=== PATIENT | female | born 1990 | race Caucasian/White ===

== ENCOUNTER → 2016-07-13 | Outpatient (CLI) | payer OTHER ==
[~2016-07-13] MED LIST: CHOL1TAB42; CITA20TA9 PO; PRENTAB44 PO
[2016-07-13 15:11] LABS: BASO % 0.7 %; BASO ABS # 0.06 K/uL (0-0.2); COMPLETE YES; EOS % 2.7 %; HEMATOCRIT 40.6 % (37-47); IG% 0.2 %; LYMPH % 41.3 %; LYMPH ABS # 3.72 K/uL (1.2-3.4); MEAN CELL VOLUME 87.5 fL (80-100); MEAN CORPUSCULAR HEMOGLOBIN 30.4 pg (25-34); MEAN CORPUSCULAR HGB CONC 34.7 g/dl (32-36); MEAN PLATELET VOLUME 9.9 fL (7.4-10.4); MONO % 8.1 %; PLATELET COUNT 278 K/uL (130-400); RED BLOOD COUNT 4.64 M/uL (4.2-5.4); WHITE BLOOD COUNT 9.01 K/uL (4.8-10.8)
[2016-07-13 15:31] LABS: BLOOD UREA NITROGEN 11 mg/dl (7-18); BUN/CREATININE RATIO 12.3 (10-20); CALCIUM 8.7 mg/dl (8.5-10.1); CARBON DIOXIDE 30 mmol/L (21-32); CHLORIDE 105 mmol/L (98-107); CREATININE 0.89 mg/dl (0.60-1.20); GLUCOSE 107 mg/dl (70-99); POTASSIUM 3.8 mmol/L (3.5-5.1); SODIUM 139 mmol/L (136-145)
== END | disposition home or self-care (01) ==
LOC: C.LAB1850 13:19
PROVIDERS: ATTEND Internal Medicine
DX: M54.5 Low back pain (principal); D64.9 Anemia, unspecified

== ENCOUNTER 2019-05-23 18:46 | Observation (INO) ==
[2019-05-23] MEDS ORDERED: LACTATED RINGER'S 1,000 ML IV PRN (19:18)
[2019-05-23] MEDS ORDERED: LACTATED RINGER'S 500 ML IV ONE (19:21)
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
[2019-05-23 19:54] LABS: Basophils # (auto) 0.03 K/uL (0-0.2); Basophils % (auto) 0.2 %; Eosinophils % (auto) 1.3 %; Hematocrit (blood only) 31.1 % (37-47); Hemoglobin 10.6 g/dL (12.0-16.0); Immature Granulocytes # (auto) 0.16 K/uL (0.00-0.02); Immature Granulocytes % (auto) 1.1 %; Lymphocytes # (auto) 3.58 K/uL (1.2-3.4); Lymphocytes % (auto) 23.8 %; Mean Corpuscular Hemoglobin 31.4 pg (25-34); Mean Corpuscular Hgb Conc 34.1 g/dL (32-36); Monocytes % (auto) 9.3 %; Neutrophils # (auto) 9.67 K/uL (1.4-6.5); Neutrophils % (auto) 64.3 %; Platelet Count 265 K/uL (130-400); RDW Coefficient of Variation 13.1 % (11.5-14.5); Red Blood Count 3.38 M/uL (4.2-5.4); White Blood Count 15.04 K/uL (4.8-10.8)
[2019-05-23 20:03] LABS: Appearance Urine Clear (Clear); Bacteria Urine Automated Negative (Negative); Bilirubin Urine Negative (Negative); Blood Urine 2+ (Negative); Color Urine Yellow; Epithelial Cell Urine Auto 20-30 /lpf (0-5); Glucose Urine UA Negative (Negative); Ketones Urine Negative (Negative); Leukocyte Esterase Urine Negative (Negative); Nitrite Urine Negative (Negative); Protein Urine Negative (Negative); Specific Gravity Urine 1.018 (1.000-1.030); Urobilinogen Urine Negative (Negative); pH Urine 6.5 (4.5-7.5)
[2019-05-23 20:17] LABS: Amphetamines+Metham, Urine Neg (Neg); Barbiturates, Urine Neg (Neg); Benzodiazepine, Urine Neg (Neg); Cocaine, Urine Neg (Neg); MDMA (Ecstacy), Urine Neg (Neg); Methadone, Urine Neg (Neg); Opiate, Urine Neg (Neg); Phencyclidine, Urine Neg (Neg)
--- NOTE | 2019-05-23 21:23 | Ultrasound Report ---
US OB limited HISTORY: 29 years-old Female 30wks bleeding, ctx, placenta check and growth acute vaginal bleeding w ith third trimester COMPARISON: Obstetric ultrasound 03/14/2019 TECHNIQUE: Multiple real-time sonographic images of the deep pelvic structures were obtained transabd ominally assessing grayscale appearance, color flow and M-mode analysis FINDINGS: Complete anatomy scan was not conducted. The cervix appears to be closed and is partially obscured by the head. Single living intrauterine gestation is noted in cephalic positioning. heart r ate measures 124 bpm. Placenta appears unremarkable and is noted within a posterior position. Head ci rcumference measures 28.28 cm, 31 weeks 0 days. BPD measures 7.96 cm, 32 weeks and 0 days. AC measure s 26.6 cm, 30 weeks and 5 days. Femur length is 5.56 cm, 29 weeks and 2 days. Estimated weight is 3 lbs. 7 oz. +/- 8 ounces. Overall estimated gestational age is 30 weeks and 1 day with estimated date of delivery calculated at 07/31/2019. IMPRESSION: 1. Single living intrauterine gestation in cephalic positioning. 2. Unremarkable appearance of the placenta with closed cervix. 3. measurements as above. ACT 112: Negative or not required by law. The above report was generated using voice recognition software. It may contain grammatical, syntax o r spelling errors. Electronically signed by: Camden Weir M.D. 05/23/2019 9:22 PM
[2019-05-23] MEDS ORDERED: ACETAMINOPHEN 325 MG TAB PO PRN (22:09)
--- NOTE | 2019-05-23 22:09 | Obstetrical Progress Note ---
Date of Service May 23, 2019 Assessment & Plan (1) 30 weeks gestation of : (2) Vaginal bleeding in : no further bleeding and no evidence of ctx, so explained to pt given my prior exam and us findings, will not check her at this time. still i felt her bleeding was significant and prefer to watch her overnight and she is agreeable. will allow periods of time off monitor with cont reactive nst and no ctx. she needs to let us know renae with any complaints or recurrence of bleeding. i explained i cannot tell for sure where blood came from but have to presume could be abruption. really just need to wait and watch and see what if anything changes. she verbalized understanding. requests tylenol for her back pain and heating pad and position change. Subjective pt notes her back pain is bothering her, she has chronic back pain and wants to stand up. +fm. no further bleeding. denies ctx. she is thirsty but not hungry Physical Exam Constitutional: WD/WN, vitals as above Neurologic: grossly normal Psychiatric: A+Ox3, euthymic affect Genitourinary: OB Exam Monitor Tracing: + external FHT monitor used (categ 1 fetus, ), + external uterine monitor used (no ctx), + category I and + normal FHT variability sve deferred, no further bleeding per nurse Results & Data Vital Signs (Past 12 Hours) Vital Signs Temp Pulse Resp BP 05/23/19 19:26 98.6 F 20 05/23/19 19:17 88 128/77 05/23/19 18:54 88 130/79 Laboratory Results Labs reviewed, hgb stable for her, tox screen neg, u/a with blood but no bacteria. Diagnostic Findings Bedside us done efw 10%, fluid on images normal as dvp not reported upon, placenta posterior, no evid of clot or abnormality, cephalic and cx closed. see report. PG Care Time/CCT Total # of Minutes Spent Total Time Spent with Patient: Total time spent is greater than 50% in coordination of care (as documented) at patient's floor/unit and/or counseling patient: Coding Level of Care Code None Diagnoses 30 weeks gestation of Z3A.30 Vaginal bleeding in O46.90
[2019-05-23] MEDS ORDERED: QUETIAPINE FUMARATE 100 MG TABLET PO SCH (22:49)
[2019-05-23] MEDS ORDERED: VALACYCLOVIR HCL 500 MG TABLET PO SCH (23:00)
--- NOTE | 2019-05-24 07:38 | Obstetrical Progress Note ---
Date of Service May 24, 2019 Assessment & Plan (1) 30 weeks gestation of : (2) Vaginal bleeding in : (3) Herpes genitalia: Discussed with pt her course. Not sure if raw visualization of vagina contributed to her bleeding as she has active herpes outbreak but the bleeding was significant enough for me to presume abruption. No labor, normal placentation, ie no previa. If rebleeds may get label of chronic abruption and will rec steroid course based on ega. Growth borderline on us done here, rec we repeat it in about 3wks in office and that we plan weekly nsts for now. will send note to OB nurse to checkin with pt sunday and make sure followup arranged. pt is well aware that she should have nothing per vagina. I rec once she is done her bid valtrex that we trt her with daily valtrex for rest of . sent script to pharmacy. pt aware. denies questions. rh pos. Subjective Patient denies pain or bleeding. She rested well overnight. pad with only dried blood. +FM. Physical Exam Constitutional: WD/WN, vitals as above Neurologic: grossly normal Psychiatric: A+Ox3, euthymic affect Genitourinary: OB Exam Monitor Tracing: + external FHT monitor used (135 mod variability reactive for age. ), + external uterine monitor used (no ctx), + category I and + normal FHT variability exam deferred Results & Data Vital Signs (Past 12 Hours) Vital Signs Temp Pulse Resp BP 05/24/19 03:16 98.1 F 75 16 126/66 05/23/19 23:20 97.7 F 80 18 125/75 PG Care Time/CCT Total # of Minutes Spent Total Time Spent with Patient: Total time spent is greater than 50% in coordination of care (as documented) at patient's floor/unit and/or counseling patient: Coding Level of Care Code 78058 Subseq Obs Care Lvl 2 Diagnoses 30 weeks gestation of Z3A.30 Vaginal bleeding in O46.90 Herpes genitalia A60.00 Time Spent (min) 25 Comment this bill is for 05/24/19 , needs nst bill this date
[2019-05-24] MEDS ORDERED: PRENATAL VITAMIN 1 TAB PO SCH (09:00)
[2019-05-24] MEDS ORDERED: ESCITALOPRAM OXALATE 20 MG TAB PO SCH (09:00)
[2019-05-26 13:25] LABS: Chlamydia Trach RNA NOT DETECTED (NOT DETECTED); GC (Neis gonorrhoeae) RNA NOT DETECTED (NOT DETECTED)
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
== END 2019-05-24 07:45 | disposition home or self-care (01) ==
LOC: OPB 18:46 → 4S1 18:46

== ENCOUNTER 2019-07-18 13:48 | Inpatient (IN) ==
[2019-07-18] MEDS ORDERED: CEFAZOLIN 3000MG 65 ML IV SCH (14:30)
[2019-07-18] MEDS ORDERED: LACTATED RINGER'S 1,000 ML IV SCH ×3 (14:30→18:18)
[2019-07-18] MEDS ORDERED: CITRIC ACID/SODIUM CITRATE 15 ML UDC PO SCH (14:30)
--- NOTE | 2019-07-18 14:31 | History & Physical Report ---
Date of Service July 18, 2019 Assessment & Plan (1) Supervision of high risk , antepartum: - heart rate tracing category 2 with accelerations and variability -The patient adamantly does not want to have a vaginal delivery. -The patient is planning to put the baby up for adoption -The risks, benefits, and alternatives to the surgery have been discussed -While the benefits will be delivery of the infant, the risks of bleeding, infection, inadvertent injury to bowel or bladder, readmission, or rehospitalization -All questions answered of the patient -Permit has been signed and she wishes to proceed -Peds and anesthesia have been notified (2) Other specified complication, antepartum: (3) Premature rupture of membranes: History of Present Illness Chief Complaint: ROM Primary Care Provider: Mahendra Zamora MD The patient is a 29-year-old 2 para 1, with an EDC of 27 July, at 38+ weeks gestational age, who presents to labor and delivery with spontaneous rupture of membranes. Patient states the membranes ruptured at approximately 1130 hrs. on the day of admission. She states that she has been having contractions. The course is remarkable for a dilated right ventricle of the cranium noted on growth ultrasound in the early third trimester. Right ventricle measured at 22 mm with upper limit of normal being 10 mm. Patient was recommended to have a maternal- medicine consult but she no showed for the appointment and would not reschedule. The patient is giving this baby up for adoption. She has stated that throughout the . In addition the patient desires a primary section. She refuses to have a vaginal delivery. She was scheduled for a elective primary section on 20 July. The patient has a history of depression and posttraumatic stress disorder and is on Seroquel as well as Lexapro. She has had multiple urine drug screens during the which have all been negative. The patient has had intermittent vaginal bleeding during the . Evaluation for this is also been negative. Patient has a history of herpes and was treated for an outbreak approximately 3 weeks ago. She denies any outbreak currently. Laboratory values for this show blood type of O+, antibody negative, rubella immune, hepatitis B negative, she declined all genetic screening, she had a normal 1 hour Glucola at 28 weeks, and a negative third trimester beta strep culture. Allergies Allergy/AdvReac Type Severity Reaction Status Date / Time Sulfa (Sulfonamide Allergy Severe Anaphylaxis Verified 04/15/20 15:28 Antibiotics) sulfamethoxazole [Bactrim] Allergy Severe Anaphylaxis Verified 07/16/19 15:28 trimethoprim Allergy Severe Anaphylaxis Verified 07/16/19 15:28 Bactrim Allergy Unknown UNKNOWN Unverified 11/25/14 23:21 Home Medications Home Medications Medication Instructions Recorded Confirmed Type PNV cmb#95-ferrous fumarate-FA 1 tab PO DAILY 02/20/19 07/16/19 History [] escitalopram oxalate [Lexapro] 20 mg PO DAILY 02/20/19 07/16/19 History quetiapine [Seroquel] 100 mg PO DAILY 02/20/19 07/16/19 History valacyclovir 500 mg tablet 500 mg PO BID 5 Days #10 tab 05/23/19 07/16/19 Rx valacyclovir 500 mg PO DAILY 30 Days #30 tab 05/24/19 07/16/19 Rx Patient History Medical History (Updated 07/18/19 @ 14:34 by Michael Jerez Jr, MD, FACOG) 30 weeks gestation of Anxiety Bipolar 1 disorder Chronic back pain Depression Dizziness (Inactive) Dyspnea (Resolved) Encounter for anatomic survey (Inactive) Encounter for pre-operative examination False labor before 37 completed weeks of gestation Gallbladder calculus Health care maintenance Herpes NO CURRENT OUTBREAK History of migraine 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 Osteoarthritis Pelvic pain affecting Scoliosis Surgical History History of endoscopy History of esophagogastroduodenoscopy (EGD) Status post myringotomy with tube placement of both ears Social History Preferred Language: Spanish Communication Ability: Effective Stopper Setter Required: No Beliefs That Will Affect Care: None marital status: marital status details: spouse: Chester Caballero (26) incarcerated Current Living Situation: Family Current Living Situation Comment: mom and grandparents and four year old son current occupational status: employed current occupation: Home health aid Feels Safe at Home: Yes Smoking Status: Heavy tobacco smoker Tobacco Type: cigarettes ; Cigarettes Per Day: 10 ; Second Hand Exposure: Yes (grandfathers smoked) ; Hx Alcohol Use: No Hx Substance Use: No Physical Exam Constitutional: WD/WN, vitals as above Neck: trachea midline, no thyromegaly Respiratory: normal respiratory effort, lungs clear to auscultation Cardiovascular: RRR, no murmur, no edema Extremities: no calf tenderness Gastrointestinal (Abdomen): Abdomen: Gravid, vertex, positive heart tones, positive palpable contractions every 3 minutes, mild to palpation Skin: no lesions Genitourinary: Cervix: Sterile speculum examination, gross rupture of membranes, 4 cm / 90%/0 station Lymphatic: no lymphadenopathy Results & Data Vital Signs (Past 12 Hours) Vital Signs Pulse BP 07/18/19 14:08 93 H 141/87 H Coding Level of Care Code None Diagnoses Supervision of high risk , antepartum O09.90 Other specified complication, antepartum O99.89 Premature rupture of membranes O42.90
[2019-07-18 14:38] LABS: Basophils # (auto) 0.03 K/uL (0-0.2); Basophils % (auto) 0.2 %; Eosinophils # (auto) 0.03 K/uL (0-0.5); Eosinophils % (auto) 0.2 %; Hemoglobin 10.9 g/dL (12.0-16.0); Immature Granulocytes # (auto) 0.12 K/uL (0.00-0.02); Immature Granulocytes % (auto) 0.7 %; Lymphocytes # (auto) 2.74 K/uL (1.2-3.4); Mean Corpuscular Hemoglobin 29.5 pg (25-34); Mean Corpuscular Volume 89.2 fL (80-100); Mean Platelet Volume 9.9 fL (7.4-10.4); Monocytes # (auto) 1.28 K/uL (0.11-0.59); Neutrophils # (auto) 14.04 K/uL (1.4-6.5); Neutrophils % (auto) 76.9 %; Platelet Count 307 K/uL (130-400); RDW Coefficient of Variation 13.3 % (11.5-14.5); RDW Standard Deviation 43.7 fL (36.4-46.3); White Blood Count 18.24 K/uL (4.8-10.8)
[2019-07-18] MEDS ORDERED: fentaNYL citrate 100 MCG/2 ML VIAL ONE (15:26)
[2019-07-18] MEDS ORDERED: MoRPHine SULFATE PF 1 MG/ML 10 ML AMP/VIAL ONE (15:27)
[2019-07-18] MEDS ORDERED: ONDANSETRON INJ 2 MG/ML 2 ML VIAL ONE (16:14)
[2019-07-18] MEDS ORDERED: PHENYLEPHRINE 100MCG/ML 5ML SYR ONE (16:14)
[2019-07-18] MEDS ORDERED: KETOROLAC 30 MG/ML VIAL ONE (16:14)
--- NOTE | 2019-07-18 16:16 | Post Operative Brief Note ---
PG Immediate Post Op with CF Date of Surgery July 18, 2019 Pre & Post Diagnosis Operation Date: 07/18/19 15:15 Pre-Op Diagnosis: 1. Term intrauterine 2. Active labor 3. Rupture of membranes Post-Op Diagnosis: Same Operation Date: 07/21/19 07:30 <No data on this case meets the specified criteria> I identified the patient and participated in the time-out.: Yes Procedure Operation Date: 07/18/19 15:15 Actual Procedures p Elective Section in LD - Michael Jerez Jr, MD, FACOG Operation Date: 07/21/19 07:30 <No data on this case meets the specified criteria> Surgeon Michael Jerez Jr, MD, FACOG Glass Melt Operator Vicente Estimated Blood Loss 800 Findings See Below (viable male, Apgars 7/8; weight 6lbs 6 ozs, gasses pending, normal appearing tubes/ovaries bilaterally)
[2019-07-18] MEDS ORDERED: NALBUPHINE HCL INJ 10 MG/ML AMP IV PRN (16:34)
[2019-07-18] MEDS ORDERED: MoRPHine SULFATE PF 1 MG/ML 10 ML AMP/VIAL INT SPINAL ONE (16:34)
[2019-07-18] MEDS ORDERED: NALOXONE HCL 0.08 MG in SYRINGE 1.8 ML IV PRN (16:34)
[2019-07-18] MEDS ORDERED: NALOXONE HCL 0.4 MG/1 ML VIAL/CARP IV PRN (16:34)
[2019-07-18] MEDS ORDERED: ePHEDrine sulfate 50 MG/ML AMP IV PRN (16:34)
[2019-07-18] MEDS ORDERED: KETOROLAC 30 MG/ML VIAL IV PRN (16:34)
[2019-07-18] MEDS ORDERED: NALOXONE HCL 1 MG in SODIUM CHLORIDE 0.9% 1000ML 1,000 ML IV PRN (16:34)
[2019-07-18] MEDS ORDERED: MoRPHine SULFATE 2 MG/ML CARP IV PRN (16:34)
[2019-07-18] MEDS ORDERED: LACTATED RINGER'S 500 ML IV PRN (16:34)
[2019-07-18] MEDS ORDERED: HYDROmorphone INJ 1 MG/ML SYRINGE IV PRN (16:34)
[2019-07-18] MEDS ORDERED: MEPERIDINE HCL 25 MG/ML CARP/VIAL IV PRN (16:34)
--- NOTE | 2019-07-18 16:34 | Anesthesiology Consultation ---
Date of Service July 18, 2019 Assessment & Plan Chart Review Chart Review: Acceptable Risk for Surgery and Patient NOT seen in Pre Admission Testing Consults Requested none ASA ASA2 Proposed Anesthesia Anesthesia Type: Spinal Risk / Benefits Reviewed With: PT / POA / Parent / Guardian, Accepts Plan and Informed Consent Obtained History Surgery Operation Date: 07/18/19 15:15 Proposed Procedures p Section in - Michael Jerez Jr, MD, FACOG Operation Date: 07/21/19 07:30 Proposed Procedures p Section in - Pepe Godoy MD Height/Weight Height: 5 ft 1 in Weight: 85.729 kg Allergies Allergy/AdvReac Type Severity Reaction Status Date / Time Sulfa (Sulfonamide Allergy Severe Anaphylaxis Verified 07/16/19 15:28 Antibiotics) sulfamethoxazole [Bactrim] Allergy Severe Anaphylaxis Verified 07/16/19 15:28 trimethoprim Allergy Severe Anaphylaxis Verified 07/16/19 15:28 Bactrim Allergy Unknown UNKNOWN Unverified 11/25/14 23:21 Medications Home Medications Medication Instructions Recorded Confirmed Last Taken PNV cmb#95-ferrous fumarate-FA 1 tab PO DAILY 02/20/19 07/16/19 05/23/19 [] escitalopram oxalate [Lexapro] 20 mg PO DAILY 02/20/19 07/16/19 05/23/19 quetiapine [Seroquel] 100 mg PO DAILY 02/20/19 07/16/19 05/22/19 valacyclovir 500 mg tablet 500 mg PO BID 5 Days #10 tab 05/23/19 07/16/19 05/23/19 valacyclovir 500 mg PO DAILY 30 Days #30 tab 05/24/19 07/16/19 Unknown NPO Date Last Intake of Fluids: 07/18/19 Time Last Intake of Fluids: 12:00 Date Last Intake of Solids: 07/17/19 Time Last Intake of Solids: 21:00 Past Medical History Medical History 30 weeks gestation of Anxiety Bipolar 1 disorder Chronic back pain Depression Dizziness (Inactive) Dyspnea (Resolved) Encounter for anatomic survey (Inactive) Encounter for pre-operative examination False labor before 37 completed weeks of gestation Gallbladder calculus Health care maintenance Herpes NO CURRENT OUTBREAK History of migraine 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 Osteoarthritis Pelvic pain affecting Scoliosis Exercise / Class Metabolic Activity II 4-5 Yardwork/Stairs/Walk up hill Past Family History Family History Aunt Family history of reaction to anesthesia had a problem with spinal for --not sure what happened Hypertension Grandmother (Paternal) Family history of diabetes mellitus Hypertension Grandfather (Paternal) Family history of diabetes mellitus Hypertension Grandfather (Maternal) Family history of diabetes mellitus Hypertension Past Surgical History Surgical History History of endoscopy History of esophagogastroduodenoscopy (EGD) Status post myringotomy with tube placement of both ears Past Anesthesia History No Hx of Anesthesia Complications and No Family Hx of Anesthesia Complications History of PONV No Hx of PONV and No Hx of Motion Sickness Social History Smoking Status: Heavy tobacco smoker tobacco type: cigarettes Smoking cigarettes per day: 10 Do You Dip or Chew Tobacco: No Hx Alcohol Use: No Alcohol type: hard liquor alcohol intake frequency: holidays/special occasions only Hx Substance Use: No substance use type: former substance user Substance Use Type Other:: 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; opiates and cocaine Physical Exam Vital Signs Last Vital Signs Temp 37.0 C 07/18/19 14:42 Pulse 88 07/18/19 16:28 Resp 20 07/18/19 14:42 BP 87/44 L 07/18/19 16:24 Pulse Ox 99 07/18/19 16:28 ENMT Mouth: + poor dentition Thyromental Distance: > or= 3.5 Finger Breadths Mallampati Class: II Neck normal visual inspection Respiratory normal respiratory effort Auscultation: lungs clear to auscultation bilaterally Cardiovascular Rate/Rhythm: regular rate and regular rhythm Psychiatric Orientation: alert Testing Laboratory Results 07/18/19 14:27 Blood Type O Positive 07/18/19 14:27 Antibody Screen NEGATIVE 07/18/19 14:27
[2019-07-18 16:35] LABS: Base Excess Cord Arterial Bld -0.9 mEq/L (-9-1.8); CO2 Cord Arterial Blood 50 mmHg (39.1-73.5); HCO3 Cord Arterial Blood 26 mmol/L (19.7-28.5); PO2 Cord Arterial Blood 14 mmHg (4.1-31.7); pH Cord Arterial Blood 7.33 (7.1-7.38)
[2019-07-18 16:36] LABS: Oxygen Sat Cord Arterial Blood < 60.0 % (<60)
[2019-07-18 16:40] LABS: Base Excess Cord Venous Blood -1.4 mEq/L (-7.7-1.9); Cord Venous Blood HCO3 26 mmol/L (18.4-26.8); Cord Venous Blood PCO2 50 mmHg (30.4-57.2); Cord Venous Blood PO2 14 mmHg (14.1-43.3); Cord Venous Blood pH 7.32 (7.20-7.44); O2 Saturation Cord Venous Bld < 60.0 % (<68)
--- NOTE | 2019-07-18 16:40 | Operative Report (OR) ---
DATE OF OPERATION: 07/18/2019 PREOPERATIVE DIAGNOSES: 1. Term . 2. Active labor. 3. Spontaneous rupture of membranes. POSTOPERATIVE DIAGNOSES: Same. PROCEDURE PERFORMED: Primary elective section. SURGEON: Michael Jerez MD ANIMAL KEEPER: Hadely Zhang MD. ANESTHESIA: Spinal. FINDINGS: Viable male with Apgars of 7 and 8 and weight of 6 pounds 6 ounces. Arterial and venous cord gases are pending. Normal appearing tubes and ovaries bilaterally, dark brown clot with the placenta, possibly consistent with chronic abruption. PROCEDURE IN DETAIL: The patient was taken to the operating room and after spinal anesthesia, was placed in supine position, draped and prepped in the usual fashion. Pfannenstiel type incision was made. Underlying subcutaneous tissue was dissected down to the ventral abdominal fascia, which was nicked and opened in a horizontal manner. Preperitoneal fascia was dissected away until the peritoneal cavity was entered and opened in a vertical manner. Bladder blade was placed. Uterus was entered sharply and extended in a semilunar fashion manually. Viable male infant was delivered. Cord was clamped and cut and the baby was passed off to pediatrics who was in attendance for the delivery. Cord gases and cord blood samples obtained. Placenta delivered spontaneously and sent for pathological evaluation. The uterus was exteriorized. The uterine cavity was wiped clean of any residual blood tissue and/or clot. The uterine incision was then closed with 2 layers of 4-0 Vicryl, the first a running locking stitch, the second an imbricating stitch. Hemostasis achieved and the uterus returned to the pelvic cavity. Pericolic gutters were cleared bilaterally of any blood tissue and/or clot. Sponge and needle count was correct. Uterine incision was inspected for hemostasis again which was present. The rectus muscle was then plicated in the midline with a running 2-0 Vicryl stitch. The fascia was closed laterally with a running 0 Vicryl suture. Subcutaneous tissue was irrigated with warm saline and the skin incision was closed with a 4-0 Monocryl subcuticular suture. Sterile dressing was applied and the patient was taken to the recovery room in satisfactory condition. I attest to the content of the Intraoperative Record and any orders documented therein. Any exception s are noted below.
[2019-07-18] MEDS ORDERED: SODIUM CHLORIDE 0.9% 1000ML 1,000 ML IV SCH (16:45)
[2019-07-18] MEDS ORDERED: NO NARCOTICS OR SEDATIVES SCH (16:45)
[2019-07-18] MEDS ORDERED: DC INTRASPINAL MORPHINE SCH (16:45)
[2019-07-18 16:53] LABS: Amphetamines+Metham, Urine Neg (Neg); Barbiturates, Urine Neg (Neg); Benzodiazepine, Urine Neg (Neg); Cocaine, Urine Neg (Neg); MDMA (Ecstacy), Urine Neg (Neg); Methadone, Urine Neg (Neg); Opiate, Urine Neg (Neg); Phencyclidine, Urine Neg (Neg)
--- NOTE | 2019-07-18 16:59 | Anesthesiology Progress Note ---
Date of Service July 18, 2019 Anesthesia Post Procedure Vital Signs Vital Signs: Temp Pulse Resp BP Pulse Ox 07/18/19 16:54 77 100 07/18/19 16:50 72 115/66 07/18/19 16:49 72 100 07/18/19 16:44 76 99 07/18/19 16:42 78 106/57 L 07/18/19 16:39 74 99 07/18/19 16:37 80 79 L 07/18/19 16:34 83 97/60 L 07/18/19 16:33 83 94/61 L 98 07/18/19 16:30 36.5 C 76 16 94/61 L 98 07/18/19 16:28 88 99 07/18/19 16:24 79 87/44 L 07/18/19 16:23 83 98 07/18/19 15:23 90 100 07/18/19 15:18 83 99 07/18/19 15:13 89 100 07/18/19 15:08 85 100 07/18/19 15:03 88 100 07/18/19 14:58 89 100 07/18/19 14:53 108 H 100 07/18/19 14:42 37.0 C 93 H 20 141/87 H 07/18/19 14:08 93 H 141/87 H Transfer of Care Handoff Completed per policy Notes Mental Status: alert / awake / arousable Nausea / Vomiting: adequately controlled Pain: adequately controlled Airway Patency, RR, SpO2: stable & adequate BP & HR: stable & adequate Hydration State: stable & adequate Neuraxial Anesthesia: was administered and sensory block is resolving Anesthetic Complications: no major complications apparent
[2019-07-18] MEDS ORDERED: ONDANSETRON INJ 2 MG/ML 2 ML VIAL IV PRN (18:18)
[2019-07-18] MEDS ORDERED: DIPHTHERIA/TETANUS/PERTUSSIS 0.5 ML SYR/VIAL IM ONE (18:18)
[2019-07-18] MEDS ORDERED: SUPERCREAM 0.870% 15 GM JAR EXT PRN (18:18)
[2019-07-18] MEDS ORDERED: BENZOCAINE 20% AER SPR 82.5 GM CAN EXT PRN (18:18)
[2019-07-18] MEDS ORDERED: HYDROCORTISONE ACETATE 25 MG SUPP PR PRN (18:18)
[2019-07-18] MEDS: OXYTOCIN 20 UNITS in LACTATED RINGER'S 1,000 ML IV SCH (19:43)
[2019-07-18] MEDS: SIMETHICONE 80 MG CHEW PO SCH (19:43)
[2019-07-18] MEDS ORDERED: QUETIAPINE FUMARATE 100 MG TABLET PO SCH (21:00)
[2019-07-18] MEDS: NICOTINE 21 MG/24 HR TDSY TD SCH (21:29)
[2019-07-18] MEDS: DiphenhydrAMINE HCL 50 MG/ML VIAL IV PRN (21:33)
[2019-07-19] MEDS: SIMETHICONE 80 MG CHEW PO SCH ×5 (03:20→20:47)
[2019-07-19] MEDS: OXYTOCIN 20 UNITS in LACTATED RINGER'S 1,000 ML IV SCH (03:21)
[2019-07-19 06:35] LABS: Basophils # (auto) 0.02 K/uL (0-0.2); Basophils % (auto) 0.1 %; Eosinophils # (auto) 0.09 K/uL (0-0.5); Eosinophils % (auto) 0.5 %; Hematocrit (blood only) 28.1 % (37-47); Hemoglobin 9.2 g/dL (12.0-16.0); Immature Granulocytes # (auto) 0.11 K/uL (0.00-0.02); Immature Granulocytes % (auto) 0.6 %; Lymphocytes # (auto) 2.77 K/uL (1.2-3.4); Lymphocytes % (auto) 16.1 %; Mean Corpuscular Hemoglobin 29.7 pg (25-34); Mean Corpuscular Hgb Conc 32.7 g/dL (32-36); Mean Corpuscular Volume 90.6 fL (80-100); Mean Platelet Volume 9.7 fL (7.4-10.4); Monocytes # (auto) 0.91 K/uL (0.11-0.59); Monocytes % (auto) 5.3 %; Neutrophils # (auto) 13.35 K/uL (1.4-6.5); Neutrophils % (auto) 77.4 %; Platelet Count 254 K/uL (130-400); RDW Coefficient of Variation 13.5 % (11.5-14.5); RDW Standard Deviation 44.2 fL (36.4-46.3); White Blood Count 17.25 K/uL (4.8-10.8)
--- NOTE | 2019-07-19 08:11 | Obstetrical Progress Note ---
Date of Service July 19, 2019 Assessment & Plan (1) Premature rupture of membranes: - discussed surgery and findings - begin ambulation later today - routine care Subjective Ambulation: limited ambulation Physical Exam Constitutional WD/WN, vitals as above Respiratory normal respiratory effort, lungs clear to auscultation Cardiovascular RRR, no murmur, no edema Gastrointestinal (Abdomen) Dressing dry, appropriate post-op tenderness Musculoskeletal (-) deep calf tenderness Results & Data Vital Signs (Past 12 Hours) Vital Signs Temp Pulse Resp BP Pulse Ox 07/19/19 06:00 14 95 07/19/19 05:25 14 94 07/19/19 04:35 14 92 07/19/19 03:50 14 95 07/19/19 03:10 14 91 07/19/19 02:30 16 92 07/19/19 01:25 14 96 07/19/19 00:35 14 96 07/18/19 23:10 99.0 F 100 H 16 124/71 95 07/18/19 22:35 16 96 07/18/19 22:00 16 99 07/18/19 21:30 16 98
[2019-07-19] MEDS: PRENATAL VITAMIN 1 TAB PO SCH (08:23)
[2019-07-19] MEDS: DiphenhydrAMINE HCL 50 MG/ML VIAL IV PRN (08:23)
[2019-07-19] MEDS: FERROUS SULFATE 325 MG TAB PO SCH (08:23)
[2019-07-19] MEDS: ESCITALOPRAM OXALATE 20 MG TAB PO SCH (08:25)
[2019-07-19] MEDS ORDERED: QUETIAPINE FUMARATE 100 MG TABLET PO SCH (09:00)
[2019-07-19] MEDS ORDERED: DiphenhydrAMINE HCL 50 MG/ML VIAL IV PRN (10:36)
[2019-07-19] MEDS ORDERED: KETOROLAC 30 MG/ML VIAL IV PRN (10:36)
[2019-07-19] MEDS: OXYCODONE/ACETAMINOPHEN 5mg/325mg TAB PO PRN ×3 (12:38→20:45)
[2019-07-19] MEDS: IBUPROFEN 600 MG TAB PO PRN ×2 (16:36→20:46)
[2019-07-19] MEDS: NICOTINE 21 MG/24 HR TDSY TD SCH (20:45)
[2019-07-19] MEDS ORDERED: SENNA 8.6 MG TAB PO SCH (21:00)
[2019-07-19] MEDS ORDERED: MAGNESIUM HYDROXIDE SUSP 30 ML UDC PO SCH (21:00)
[2019-07-20] MEDS: OXYCODONE/ACETAMINOPHEN 5mg/325mg TAB PO PRN ×2 (00:23→08:39)
[2019-07-20] MEDS: IBUPROFEN 600 MG TAB PO PRN ×2 (00:24→08:40)
[2019-07-20 06:30] LABS: Hemoglobin 8.2 g/dL (12.0-16.0)
[2019-07-20] MEDS: SIMETHICONE 80 MG CHEW PO SCH (08:39)
[2019-07-20] MEDS: ESCITALOPRAM OXALATE 20 MG TAB PO SCH (08:39)
[2019-07-20] MEDS: FERROUS SULFATE 325 MG TAB PO SCH (08:40)
--- NOTE | 2019-07-20 08:46 | Obstetrical Progress Note ---
Date of Service July 20, 2019 Assessment & Plan (1) state: Postoperative from section patient meets discharge criteria as she is ambulating well tolerating an oral diet has minimal bleeding and no extremity pain. Discharge instructions were reviewed and prescriptions were sent to her pharmacy of choice patient advised to call with any concerns and follow-up in the office discussed Subjective Ambulation: ambulating normally Diet Tolerance:: regular diet Lochia:: Small Current Pain Level(1-10): 1 Physical Exam Constitutional WD/WN, vitals as above Gastrointestinal (Abdomen) normal bowel sounds, soft, nontender, no hepatosplenomegaly (Incision CDI, Ext neg) Results & Data Vital Signs (Past 12 Hours) Vital Signs Temp Pulse Resp BP Pulse Ox 07/20/19 07:20 97.9 F 81 16 133/79 98 07/19/19 23:50 98.1 F 88 16 125/82 97
[2019-07-20] MEDS: PRENATAL VITAMIN 1 TAB PO SCH (10:30)
--- NOTE | 2019-07-21 08:52 | Discharge Summary ---
Date of Service July 21, 2019 Admission HPI Per Admitting Provider The patient is a 29-year-old 2 para 1, with an EDC of 27 July, at 38+ weeks gestational age, who presents to labor and delivery with spontaneous rupture of membranes. Patient states the membranes ruptured at approximately 1130 hrs. on the day of admission. She states that she has been having contractions. The course is remarkable for a dilated right ventricle of the cranium noted on growth ultrasound in the early third trimester. Right ventricle measured at 22 mm with upper limit of normal being 10 mm. Patient was recommended to have a maternal- medicine consult but she no showed for the appointment and would not reschedule. The patient is giving this baby up for adoption. She has stated that throughout the . In addition the patient desires a primary section. She refuses to have a vaginal delivery. She was scheduled for a elective primary section on 20 July. The patient has a history of depression and posttraumatic stress disorder and is on Seroquel as well as Lexapro. She has had multiple urine drug screens during the which have all been negative. The patient has had intermittent vaginal bleeding during the . Evaluat ion for this is also been negative. Patient has a history of herpes and was treated for an outbreak approximately 3 weeks ago. She denies any outbreak currently. Laboratory values for this show blood type of O+, antibody negative, rubella immune, hepatitis B negative, she declined all genetic screening, she had a normal 1 hour Glucola at 28 weeks, and a negative third trimester beta s trep culture. Discharge Data Consultations 07/18/19 14:17 Consult Anesthesiology Stat 07/18/19 18:18 Consult Case Management - Discharge Planning Routine Procedures Performed Operation Date: 07/18/19 15:15 Actual Procedures p Section with of live male child at 1552(Bilateral) - Michael Jerez Jr, MD, FACOG Operation Date: 07/21/19 07:30 <No data on this case meets the specified criteria> Hospital Course (1) Supervision of high risk , antepartum: Upon admission the patient was deemed to be in active labor with rupture of membranes. The patient adamantly desired no attempt at a vaginal delivery even though she had a previous successful vaginal delivery. The patient was taken to the operating room in and underwent a primary elective section delivering a viable infant. As per the patient planned the baby was given up for adoption. The adoptive Services and nephrology social worker were involved and proceeded with the adoption. Postoperatively the patient did well Fontana catheter was removed on the 1st postoperative day. On the 2nd postoperative day the patient was ambulating without difficulty and tolerating a regular diet. She was discharged home with the routine discharge instructions and prescriptions for the medications as listed as above. She will follow up in the office in 6 weeks time for postoperative check, but is always she was instructed to call with any questions problems difficulties. Coding Level of Care Code None Diagnoses Supervision of high risk , antepartum O09.90
== END 2019-07-20 11:45 | disposition home or self-care (01) | DRG 787 ==
LOC: 4S1 13:48 → 4S2 19:20 → EDSTATUS 07-21 07:30

== ENCOUNTER 2023-09-07 16:01 | Inpatient (IN) ==
[2023-09-07 16:46] LABS: Basophils # (auto) 0.05 K/uL (0.00-0.20); Basophils % (auto) 0.7 %; Eosinophils # (auto) 0.06 K/uL (0.00-0.50); Eosinophils % (auto) 0.8 %; Hematocrit (blood only) 36.5 % (37.0-47.0); Immature Granulocytes # (auto) 0.02 K/uL (0.01-0.20); Immature Granulocytes % (auto) 0.3 %; Lymphocytes # (auto) 2.35 K/uL (1.20-3.40); Lymphocytes % (auto) 32.4 %; Mean Corpuscular Hemoglobin 27.8 pg (25.0-34.0); Mean Corpuscular Hgb Conc 32.9 g/dL (32.0-36.0); Mean Corpuscular Volume 84.5 fL (80.0-100.0); Mean Platelet Volume 9.9 fL (9.4-12.4); Monocytes # (auto) 0.61 K/uL (0.11-0.59); Monocytes % (auto) 8.4 %; Neutrophils # (auto) 4.16 K/uL (1.40-6.50); Neutrophils % (auto) 57.4 %; Platelet Count 305 K/uL (130-400); RDW Coefficient of Variation 13.7 % (11.5-14.5); RDW Standard Deviation 42.5 fL (36.4-46.3); Red Blood Count 4.32 M/uL (4.20-5.40); White Blood Count 7.25 K/ul (4.8-10.8)
[2023-09-07 16:53] LABS: Appearance Urine Clear (Clear); Bacteria Urine Automated 1+ (None Seen); Bilirubin Urine Negative (Negative); Blood Urine Negative (Negative); Cast Urine Automated 0-2 /lpf (0-2); Color Urine Yellow; Glucose Urine UA Negative (Negative); Ketones Urine Negative (Negative); Leukocyte Esterase Urine 2+ (Negative); Nitrite Urine Negative (Negative); Protein Urine Negative (Negative); Specific Gravity Urine 1.013 (1.000-1.030); Urobilinogen Urine Negative (Negative)
[2023-09-07 17:03] LABS: Albumin Globulin Ratio 1.4 (0.9-2); Albumin Level 4.2 gm/dl (3.4-5.0); BUN Creatinine Ratio 9.6 (10-20); Bilirubin,Total 0.3 mg/dl (0.2-1.0); Calcium 8.6 mg/dl (8.6-10.3); Creatinine Clr Calc Pharmacy 106.4 ml/min; Est GFR (African American) 126.3 ml/min; Globulin 3.1 gm/dl (2.5-4.0); Potassium 3.3 mmol/L (3.5-5.1); Total Protein 7.3 gm/dl (6.0-8.3)
[2023-09-07 17:17] LABS: Thyroid Stimulating Hormone 0.711 uIu/ml (0.300-4.500)
[2023-09-07 17:53] LABS: Acetaminophen < 3 ug/ml (10-30); Salicylate < 3.0 mg/dl (3.0-30)
[2023-09-07 17:53] LABS: Amphetamines+Metham, Urine Neg (Neg); Barbiturates, Urine Neg (Neg); Benzodiazepine, Urine Neg (Neg); Cocaine, Urine Neg (Neg); Fentanyl, Urine Neg (Neg); MDMA (Ecstacy), Urine Neg (Neg); Marijuana, Urine Pos (Neg); Methadone, Urine Neg (Neg); Opiate, Urine Neg (Neg); Phencyclidine, Urine Neg (Neg)
--- NOTE | 2023-09-07 20:19 | Emergency Department Note ---
Impression & Plan Passive suicidal ideations ED Provider Note CHIEF COMPLAINT: Anxiety HISTORY OF PRESENT ILLNESS: This 33-year-old female patient with past medical history of bipolar disorder, herpes, migraines, depression presents to the emergency department with complaints of anxiety. The patient states she was placed on Abilify by her psychiatrist in addition to her sertraline. She stopped the medication as she did not feel that she was tolerating it well. She is having some passive suicidal ideation but does not have a plan. She denies any homicidal ideation. She states she does use medical marijuana, but does not drink alcohol or use any other illicit substances. Patient states she maybe . REVIEW OF SYSTEMS: A review of systems was performed with positives and pertinent negatives listed in the history of present illness. 10 systems were reviewed and are otherwise negative. ALLERGIES: see below MEDICATIONS: see below PMH: see below SOCIAL HISTORY: see below DDx: Mood disorder, infection, hypoglycemia, electrolyte abnormalities, toxicologic, trauma, as well as other pathologies. PHYSICAL EXAM: Vital signs reviewed. General: Well-appearing 33 yo female, in no significant distress. HEENT: No scleral icterus, PERRLA, neck supple. MMM Cardiovascular: Regular rate and rhythm, no extra sounds. Pulmonary: Clear to auscultation bilaterally, normal work of breathing. Abdomen: Soft, nontender, nondistended, positive bowel sounds. Musculoskeletal: Atraumatic, no peripheral edema. Neurologic: Patient awake alert and oriented x 3, speech is clear Psych: Passive SI, negative HI Skin: Warm, dry, no rash EMERGENCY DEPARTMENT COURSE/MDM: This patient was evaluated and appeared to be in no significant distress. Patient was medically cleared and referred to the mental health telehealth case manager for assessment. Patient is voluntary for admission and was referred to 3 S. She was accepted on a 201. DISPOSITION: Admission Past Med/Surg History Problem List (Updated 09/07/23 @ 23:19 by Nini Martin MD) Passive suicidal ideations (Acute) Spontaneous Encounter to determine viability of Encounter for anatomic survey Encounter for supervision of normal in multigravida, antepartum Anemia (Acute) Bipolar 1 disorder Scoliosis Encounter for visit Herpes genitalia Depression (Acute) Symptomatic cholelithiasis Migraine Medical History Cervical cancer screening state Premature rupture of membranes Supervision of high risk , antepartum False labor before 37 completed weeks of gestation Vaginal bleeding in 30 weeks gestation of Health care maintenance Pelvic pain affecting Normal in multigravida, antepartum Encounter for anatomic survey Herpes NO CURRENT OUTBREAK Gallbladder calculus History of migraine Anxiety Encounter for pre-operative examination Osteoarthritis Chronic back pain Depression Irregular heart beat 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 Dizziness Ovarian cyst Dyspnea Other specified complication, antepartum Surgical History Hx of section History of endoscopy History of esophagogastroduodenoscopy (EGD) Status post myringotomy with tube placement of both ears Family History Aunt Family history of reaction to anesthesia had a problem with spinal for --not sure what happened Hypertension Grandmother (Paternal) Family history of diabetes mellitus Hypertension Grandfather (Paternal) Family history of diabetes mellitus Hypertension Stroke Grandfather (Maternal) Family history of diabetes mellitus Hypertension Other Breast cancer Diabetes Dyslipidemia Heart disease Kidney disease Ovarian cancer Thyroid disease Denies family history of Lung cancer Colorectal cancer Social History Smoking Status: Current every day smoker Tobacco Type: E-cigarettes / Vaping packs per day: 0.5; Second Hand Exposure: No; Do You Dip or Chew Tobacco: No; Hx Alcohol Use: No Hx Substance Use: Yes Prescribed Medications: Marijuana Substance Use Type Other:: 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; opiates and cocaine Preferred Language: Palestinian Communication Ability: Effective Visual Impairment: Limited Hearing Ability: Normal Carton Inspector Required: No Beliefs That Will Affect Care: None marital status: marital status details: spouse: Chester Caballero (30) [phone] Current Living Situation: Spouse, Parent and Family Current Living Situation Comment: lives with spouse, son, grandparents current occupational status: employed current occupation: Home health aid How many Children do You have: 2 Feels Safe at Home: Yes Childhood Exposure to Second-Hand Smoke: Yes Diet: regular caffeine: Yes Dental Care, Regularly: No Physical Activity Frequency: Daily Seatbelt Use: always Sunscreen Use: No Gender Identity: Female Assistive Devices: Denture - Upper, Denture - Lower and Glasses Allergies Allergies Allergy/AdvReac Type Severity Reaction Status Date / Time Sulfa (Sulfonamide Allergy Severe Anaphylaxis Verified 08/21/23 12:23 Antibiotics) sulfamethoxazole [Bactrim] Allergy Severe Anaphylaxis Verified 08/21/23 12:23 trimethoprim Allergy Severe Anaphylaxis Verified 08/21/23 12:23 Home Meds Home Medications Medication Instructions Recorded Confirmed sertraline 50 mg tablet (Zoloft) 50 mg PO HS 05/30/23 09/07/23 Previous Rx's Medication Instructions Recorded methocarbamol 750 mg tablet 750 mg PO Q6H PRN back spasm #120 07/02/23 tabs valacyclovir 500 mg tablet 500 mg PO BID PRN outbreak #2 tabs 07/02/23 Results & Data (ED) Vital Signs Vital Signs - 24 hr 09/07/23 16:06 09/07/23 20:57 Temperature 36.6 C Temperature Source Temporal Artery Scan Pulse Rate 95 H 76 Respiratory Rate 16 18 Respiratory Effort / Characteristics Non-Labored Respiratory Depth Normal Blood Pressure 124/81 125/69 Blood Pressure Mean 95 Pulse Oximetry 100 99 Oxygen Delivery Method Room Air Room Air Sepsis Recent Fever Within 48 Hours No Sepsis New/Unexplained Change in Mental Status No Sepsis Action Taken by Nursing No Action Required Home Medications Current Medication List: was personally reviewed by me Laboratory Data Attestation: I reviewed the patient's lab results. 09/07/23 16:26 09/07/23 16:26 Lab Results 09/07/23 09/07/23 09/07/23 Range/Units 16:20 16:26 16:33 WBC 7.25 (4.8-10.8) K/ul RBC 4.32 (4.20-5.40) M/uL Hgb 12.0 (12.0-16.0) g/dl Hct 36.5 L (37.0-47.0) % MCV 84.5 (80.0-100.0) fL MCH 27.8 (25.0-34.0) pg MCHC 32.9 (32.0-36.0) g/dL RDW Std Deviation 42.5 (36.4-46.3) fL RDW Coeff of Emerald 13.7 (11.5-14.5) % Plt Count 305 (130-400) K/uL MPV 9.9 (9.4-12.4) fL Immature Gran % (Auto) 0.3 % Neut % (Auto) 57.4 % Lymph % (Auto) 32.4 % Josephine % (Auto) 8.4 % Eos % (Auto) 0.8 % Baso % (Auto) 0.7 % Neut # (Auto) 4.16 (1.40-6.50) K/uL Lymph # (Auto) 2.35 (1.20-3.40) K/uL Josephine # (Auto) 0.61 H (0.11-0.59) K/uL Eos # (Auto) 0.06 (0.00-0.50) K/uL Baso # (Auto) 0.05 (0.00-0.20) K/uL Immature Gran # (Auto) 0.02 (0.01-0.20) K/uL Sodium 137 (136-145) mmol/L Potassium 3.3 L (3.5-5.1) mmol/L Chloride 105 (98-107) mmol/L Carbon Dioxide 25 (21-32) mmol/L Anion Gap 7 (3-11) BUN 7 (6-23) mg/dl Creatinine 0.73 (0.6-1.2) mg/dl Est Cr Clr Drug Dosing 106.4 ml/min Est GFR ( Amer) 126.3 ml/min Est GFR (Non-Af Amer) 109.0 ml/min BUN/Creatinine Ratio 9.6 L (10-20) Glucose 67 L (70-99(Fasting)) mg/dl Calcium 8.6 (8.6-10.3) mg/dl Total Bilirubin 0.3 (0.2-1.0) mg/dl AST 11 L (13-39) U/L ALT 11 (7-52) U/L Alkaline Phosphatase 61 (34-104) U/L Total Protein 7.3 (6.0-8.3) gm/dl Albumin 4.2 (3.4-5.0) gm/dl Globulin 3.1 (2.5-4.0) gm/dl Albumin/Globulin Ratio 1.4 (0.9-2) TSH 0.711 (0.300-4.500) uIu/ml Urine Color Yellow Urine Appearance Clear (Clear) Urine pH 7.0 (4.5-7.5) Ur Specific [place] 1.013 (1.000-1.030) Urine Protein Negative (Negative) Urine Glucose (UA) Negative (Negative) Urine Ketones Negative (Negative) Urine Blood Negative (Negative) Urine Nitrite Negative (Negative) Urine Bilirubin Negative (Negative) Urine Urobilinogen Negative (Negative) Ur Leukocyte Esterase 2+ H (Negative) Urine WBC (Auto) 6-10 H (0-5) /hpf Urine RBC (Auto) 3-5 H (0-2) /hpf U Hyaline Cast (Auto) 0-2 (0-2) /lpf U Epithel Cells (Auto) 6-10 H (0-2) /hpf Urine Bacteria (Auto) 1+ H (None Seen) Urine Yeast Present A (None Prsent) POC Ur Test NEG (NEG) Salicylates < 3.0 L (3.0-30) mg/dl Urine Opiates Screen Neg (Neg) Ur Methadone, Qual Neg (Neg) Urine Fentanyl Screen Neg (Neg) Acetaminophen < 3 L (10-30) ug/ml Urine Barbiturates Neg (Neg) Ur Phencyclidine (PCP) Neg (Neg) U Amphetamin/Meth Scrn Neg (Neg) MDMA (Ecstasy) Screen Neg (Neg) U Benzodiazepines Scrn Neg (Neg) Ur Cocaine Metabolite Neg (Neg) U Marijuana (THC) Screen Pos H (Neg) Ethyl Alcohol mg/dL < 10.0 (<10.0) mg/dl SARS-CoV-2, RNA, NAAT NEGATIVE (NEGATIVE) Administered Medications Hydroxyzine HCl (Hydroxyzine Hcl 25 Mg Tab) 50 mg PO HSZ PRN PRN Reason: Insomnia Stop: 10/07/23 21:26 Last Admin: 09/07/23 22:06 Dose: 50 mg Documented By: RB Sertraline HCl (Sertraline Hcl 50 Mg Tablet) 50 mg PO HS GLADIS Stop: 10/07/23 21:59 Last Admin: 09/07/23 22:05 Dose: 50 mg Documented By: RB Valacyclovir HCl (Valacyclovir Hcl 500 Mg Tablet) 500 mg PO BID GLADIS Stop: 10/07/23 21:44 Last Admin: 09/07/23 22:05 Dose: 500 mg Documented By: RB Discharge Plan Visit Data Chief Complaint: Mental Health Evaluation Stated Complaint: MENTAL HEALTH EVAL ED Provider: Veronica,Nini B Discharge Problem: Passive suicidal ideations Patient Disposition: Admitted As Inpatient Discharge Instructions Interventions: ED Discharge Assessment Last Done: 09/07/23 20:57
[2023-09-07] MEDS ORDERED: BISMUTH SUBSALICYLATE LIQD 236 ML PO PRN (21:27)
[2023-09-07] MEDS ORDERED: ALUMINUM/MAGNESIUM SUSP 30 ML UDC PO PRN (21:27)
[2023-09-07] MEDS ORDERED: hydrOXYzine HCl 25 MG TAB PO PRN (21:27)
[2023-09-07] MEDS ORDERED: SODIUM CHLORIDE 0.65% NA SOLN 45 ML (OCEAN) PRN (21:27)
[2023-09-07] MEDS ORDERED: MAGNESIUM HYDROXIDE SUSP 30 ML UDC PO PRN (21:27)
[2023-09-07] MEDS: SERTRALINE HCL 50 MG TABLET PO SCH (22:05)
[2023-09-07] MEDS: valACYclovir HCL 500 MG TABLET PO SCH (22:05)
[2023-09-07] MEDS: hydrOXYzine HCl 25 MG TAB PO PRN (22:06)
[2023-09-08] MEDS: NICOTINE 21 MG/24 HR TDSY TD SCH (07:12)
[2023-09-08] MEDS: NICOTINE POLACRILEX 2 MG GUM MT PRN (07:12)
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
[2023-09-08] MEDS ORDERED: valACYclovir HCL 500 MG TABLET PO PRN (11:49)
[2023-09-08] MEDS: METHOCARBAMOL 750 MG TABLET PO PRN (14:25)
[2023-09-08] MEDS: ACETAMINOPHEN 325 MG TAB PO PRN (14:26)
[2023-09-08] MEDS: valACYclovir HCL 500 MG TABLET PO SCH (20:47)
[2023-09-08] MEDS: LITHIUM CARBONATE 300 MG TAB PO SCH (20:48)
[2023-09-08] MEDS: SERTRALINE HCL 50 MG TABLET PO SCH (20:49)
--- NOTE | 2023-09-09 08:44 | Psychiatric Progress Note ---
Date of Service September 09, 2023 Impression / Recommendations Impression ANGELICA DURAN is a 33-year-old F who currently lives in [place] with her son, intermittently and grandparents, has a history of BPAD, PTSD, anxiety, polysubstance use in sustained remission and was admitted on 09/07/23 21:16 on a 201 voluntary commitment for SI and mood symptoms including increased impulsivity, agitation, irritability, and sleep difficulties. Diagnostically seems most consistent with mixed episode of bipolar affective disorder though her report of mood symptoms varying over the course of the day, hx of self-harm and recent tattoos to this end and anger from relationship strain could represent borderline personality disorder. Given report of past manic episodes that sound quite convincing for BPAD and historical diagnosis reviewed mood stabilizer medication options. A: Mood improving, more hopeful today. Reviewed mood disorder questionnaire and gene BPD. Positive mood disorder screen. Gene BPD negative. She wants to continue with Woodfin, prefers to remain at current dose for awhile instead of ongoing titration. Overall, I spent a total of 25 minutes on this case including meeting with the patient, reviewing the chart, nursing report, multidisciplinary team meeting, orders, and documentation. (1) Bipolar 1 disorder, mixed, severe: Plan 09/09/2023: Switch sertraline to 50mg qd. Continue with Woodfin 300mg HS. 09/08/2023: The patient was admitted to the [facility] ([facility]) on q15 min checks (behavioral with suicide precautions) for safety. The patient will participate in group, recreational, and milieu therapies and will be offered additional individual and family sessions as clinically appropriate. -Start Woodfin 300mg HS -Continue sertraline 50mg HS -Likely would benefit from a sleep study if sleep behaviors persist -Mood Disorder Questionnaire and Gene BPD Screen Inventory Assets Strengths: supportive relationships, willing to get treatment Needs: safety and stabilization, medication adjustment, additional coping skills, increased outpatient services Suicide Risk Level Suicide Risk Level: Moderate (q15 min suicide checks) (mixed mood episode with SI and hx of impulsive suicide attempt but mood improving, feels safe in the hospital and feels able to ask for more support if needed) Suicide Risk Level Comments: Risk Factors Assessment Male: No : No Do You Have Access To A Gun?: No Health Problems: Yes (chronic back pain) Mental Health Diagnoses: Yes Substance Use Disorders: No Previous Attempt: Yes Family History of Suicide: No Previous Psychiatric Hospitalization: Yes Protective Factors Assessment : Yes Responsible for Young Children: Yes 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 Review of Systems Sleep Information Total Hours of Sleep: 8 Sleep Comments: Pt required PRN Vistaril Meal Information Percent Meal Consumed - Breakfast: 100 Percent Meal Consumed - Lunch: 80 Percent Meal Consumed - Dinner: 100 Subjective Subjective Patient was seen & assessed and interval progress reviewed with treatment team nursing and social work. Out of her room and engaging in groups. She wonders about moving her sertraline to the morning as feels like combination with Woodfin last night made her feel too tired. Did sleep well. This morning no sedation or other side effects from Woodfin. She feels more hopeful today and enjoyed talking to her son this morning. Physical Exam Psychiatric Orientation: alert and oriented x 3 Apperance: appropriately dressed and appropriately groomed Eye Contact: good eye contact Motor Behavior: no abnormal motor movements Speech: normal rate/rhythm/volume of speech (slightly fast); no pressured speech Affect: + constricted affect Mood: + depressed mood and + anxious mood Thought Process: + circumstantial thought process Thought Content: reality based without delusions Suicidal Thoughts: denies suicidal thoughts, denies suicidal plan and denies suicidal intent Homicidal Thoughts: denies homicidal thoughts Hallucinations: no auditory hallucinations and no visual hallucinations Cognition: recent memory grossly intact, remote memory grossly intact and language grossly intact; + attention not intact Insight: + fair insight Judgment: + limited judgement Vital Signs (Past 24 Hours) Last Vital Signs Temp 36.3 C L 09/09/23 06:32 Pulse 60 09/09/23 06:32 Resp 16 09/09/23 06:32 BP 117/78 09/09/23 06:33 Pulse Ox 100 09/09/23 06:32 O2 Del Method Room Air 09/09/23 06:32 Results & Data ([facility]) Current Inpatient Medications Current Inpatient Medications: Current Inpatient Medications Acetaminophen (Acetaminophen 325 Mg Tab) 650 mg PO Q4H PRN PRN Reason: Headache or Minor Fever Stop: 10/07/23 21:26 Last Admin: 09/08/23 14:26 Dose: 650 mg Al Hydrox/Mg Hydrox/Simethicone (Aluminum/Magnesium Susp 30 Ml Udc) 30 ml PO Q4H PRN PRN Reason: GI Upset Stop: 10/07/23 21:26 Bismuth Subsalicylate (Bismuth Subsalicylate Liqd 236 Ml) 15 ml PO PRN PRN PRN Reason: Loose Stool Stop: 10/07/23 21:26 Hydroxyzine HCl (Hydroxyzine Hcl 25 Mg Tab) 50 mg PO HSZ PRN PRN Reason: Insomnia Stop: 10/07/23 21:26 Last Admin: 09/07/23 22:06 Dose: 50 mg Hydroxyzine HCl (Hydroxyzine Hcl 25 Mg Tab) 25 mg PO Q4H PRN PRN Reason: Anxiety Stop: 10/07/23 21:26 Woodfin Carbonate (Woodfin Carbonate 300 Mg Tab) 300 mg PO HS GLADIS Stop: 10/08/23 21:59 Last Admin: 09/08/23 20:48 Dose: 300 mg Magnesium Hydroxide (Magnesium Hydroxide Susp 30 Ml Udc) 30 ml PO DAILY PRN PRN Reason: Constipation Stop: 10/07/23 21:26 Methocarbamol (Methocarbamol 750 Mg Tablet) 750 mg PO Q6H PRN PRN Reason: back spasm Stop: 10/08/23 11:48 Last Admin: 09/08/23 14:25 Dose: 750 mg Miscellaneous (Remove Nicoderm Patch) 1 each N/A DAILY@0859 [facility] Stop: 10/08/23 08:58 Last Admin: 09/09/23 08:35 Dose: 1 each Nicotine (Nicotine 21 Mg/24 Hr Tdsy) 1 patch TD QAM [facility] Stop: 10/08/23 08:59 Last Admin: 09/09/23 08:32 Dose: 1 patch Nicotine Polacrilex (Nicotine Polacrilex 2 Mg Gum) 2 piece MT PRN PRN PRN Reason: Nicotine Withdrawal Symptoms Stop: 10/07/23 21:26 Last Admin: 09/08/23 07:12 Dose: 2 piece Sertraline HCl (Sertraline Hcl 50 Mg Tablet) 50 mg PO HS GLADIS Stop: 10/08/23 21:59 Last Admin: 09/08/23 20:49 Dose: 50 mg Sodium Chloride (Sodium Chloride 0.65% Na Soln 45 Ml ([place])) 1 - 2 sprays NA PRN PRN PRN Reason: Nasal Dryness/Congestion Stop: 10/07/23 21:26 Valacyclovir HCl (Valacyclovir Hcl 500 Mg Tablet) 500 mg PO BID GLADIS Stop: 10/08/23 20:59 Last Admin: 09/09/23 08:32 Dose: 500 mg Mental Health & Subst Abuse Tx Psychiatrist Name of Psychiatrist: Gen Perales Date Of Appointment With Psychiatric Provider: [id number] Therapist Name of Therapist: Albert Date of Therapist Appointment: 09/11/23 Time of Therapist Appointment: Noon Outpatient Admitting Clerk Name of Outpatient Admitting Clerk: None Post Discharge Appointments Primary Care Physician Name Of Family Doctor/PCP: Chris WADE Primary Care Phone Number: SHERI Gibbs Date of Future Appointment with PCP: [phone] Contact Information Discharge Discharge Address: [facility] [address] [place] [address]
[2023-09-10] MEDS: SERTRALINE HCL 50 MG TABLET PO SCH (08:43)
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
[2023-09-10 15:12] LABS: Marijuana Quant, GCMS Urine 172 ng/mL (<5)
== END 2023-09-10 14:30 | disposition home or self-care (01) | DRG 885 ==
LOC: ED 16:01 → 3S 21:16

== ENCOUNTER 2023-11-06 17:12 | Inpatient (IN) ==
[2023-11-06 17:36] VITALS: RESP 16
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
[2023-11-06] MEDS: SODIUM CHLORIDE 0.9% 1,000 ML IV SCH (18:18)
[2023-11-06 18:26] LABS: Basophils # (auto) 0.04 K/uL (0.00-0.20); Basophils % (auto) 0.3 %; Eosinophils # (auto) 0.02 K/uL (0.00-0.50); Eosinophils % (auto) 0.1 %; Hematocrit (blood only) 35.1 % (37.0-47.0); Hemoglobin 11.6 g/dl (12.0-16.0); Immature Granulocytes # (auto) 0.07 K/uL (0.01-0.20); Immature Granulocytes % (auto) 0.5 %; Lymphocytes # (auto) 4.23 K/uL (1.20-3.40); Lymphocytes % (auto) 30.6 %; Mean Corpuscular Hemoglobin 28.2 pg (25.0-34.0); Mean Corpuscular Volume 85.4 fL (80.0-100.0); Mean Platelet Volume 9.7 fL (9.4-12.4); Monocytes # (auto) 0.91 K/uL (0.11-0.59); Monocytes % (auto) 6.6 %; Neutrophils # (auto) 8.56 K/uL (1.40-6.50); Neutrophils % (auto) 61.9 %; Platelet Count 354 K/uL (130-400); RDW Coefficient of Variation 15.1 % (11.5-14.5); RDW Standard Deviation 47.3 fL (36.4-46.3); Red Blood Count 4.11 M/uL (4.20-5.40); White Blood Count 13.83 K/ul (4.8-10.8)
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
[2023-11-06 18:36] LABS: Lithium < 0.1 mmol/L (0.6-1.2)
[2023-11-06 18:38] LABS: Alanine Aminotransferase 14 U/L (7-52); Albumin Globulin Ratio 1.7 (0.9-2); Albumin Level 4.3 gm/dl (3.4-5.0); Alkaline Phosphatase 65 U/L (34-104); Anion Gap 8 (3-11); Aspartate Aminotransferase 18 U/L (13-39); Bilirubin,Total 0.4 mg/dl (0.2-1.0); Blood Urea Nitrogen 7 mg/dl (6-23); Calcium 9.1 mg/dl (8.6-10.3); Carbon Dioxide 24 mmol/L (21-32); Chloride 106 mmol/L (98-107); Est GFR (African American) 132.9 ml/min; Est GFR (Non-African American) 114.6 ml/min; Globulin 2.6 gm/dl (2.5-4.0); Glucose 98 mg/dl (70-99(Fasting)); Potassium 2.9 mmol/L (3.5-5.1); Sodium 138 mmol/L (136-145); Total Protein 6.9 gm/dl (6.0-8.3)
[2023-11-06 18:41] LABS: Acetaminophen < 3 ug/ml (10-30); Salicylate < 3.0 mg/dl (3.0-30)
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
[2023-11-06 18:52] LABS: Thyroid Stimulating Hormone 1.562 uIu/ml (0.300-4.500)
[2023-11-06 18:54] LABS: Amphetamines+Metham, Urine Neg (Neg); Barbiturates, Urine Neg (Neg); Benzodiazepine, Urine Neg (Neg); Cocaine, Urine Neg (Neg); Fentanyl, Urine Neg (Neg); MDMA (Ecstacy), Urine Neg (Neg); Marijuana, Urine Pos (Neg); Methadone, Urine Neg (Neg); Opiate, Urine Neg (Neg); Phencyclidine, Urine Neg (Neg)
[2023-11-06 18:58] LABS: Appearance Urine Cloudy (Clear); Bacteria Urine Automated 3+ (None Seen); Bilirubin Urine Negative (Negative); Blood Urine Negative (Negative); Cast Urine Automated 0-2 /lpf (0-2); Color Urine Yellow; Glucose Urine UA Negative (Negative); Ketones Urine Trace (Negative); Leukocyte Esterase Urine 1+ (Negative); Mucus Urine Present (None Prsent); Nitrite Urine Negative (Negative); Protein Urine Trace (Negative); Specific Gravity Urine 1.026 (1.000-1.030); Urobilinogen Urine Negative (Negative); WBC Urine Automated 21-50 /hpf (0-5); pH Urine 5.5 (4.5-7.5)
[2023-11-06] MEDS: POTASSIUM CHLORIDE 10 MEQ TABCR PO STA (20:34)
[2023-11-06] MEDS ORDERED: SODIUM CHLORIDE 0.65% NA SOLN 45 ML (OCEAN) PRN (20:49)
[2023-11-06] MEDS ORDERED: MAGNESIUM HYDROXIDE SUSP 30 ML UDC PO PRN (20:49)
[2023-11-06] MEDS ORDERED: ALUMINUM/MAGNESIUM SUSP 30 ML UDC PO PRN (20:49)
[2023-11-06] MEDS ORDERED: BISMUTH SUBSALICYLATE LIQD 236 ML PO PRN (20:49)
[2023-11-06 21:20] VITALS: O2SAT 96
--- NOTE | 2023-11-07 08:27 | Electrocardiogram Report ---
Test Reason : Blood Pressure : */* mmHG Vent. Rate : 80 BPM Atrial Rate : 80 BPM P-R Int : 166 ms QRS Dur : 80 ms QT Int : 416 ms P-R-T Axes : 86 30 8 degrees QTcB Int : 479 ms Normal sinus rhythm Nonspecific T wave abnormality Prolonged QT Abnormal ECG When compared with ECG of 05-Jul-2018 17:13, T wave inversion now evident in Anterior leads Confirmed by Alon Ojeda ([id number]) on 11/07/2023 8:27:02 AM Referred By: REFERRED SELF Confirmed By: Alon Ojeda
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
[2023-11-07] MEDS: ACETAMINOPHEN 325 MG TAB PO PRN (09:19)
[2023-11-07] MEDS ORDERED: IBUPROFEN 600 MG TAB PO PRN (09:23)
[2023-11-07] MEDS: NICOTINE 14 MG/24 HR PATCH TD SCH (10:50)
[2023-11-07] MEDS ORDERED: METHOCARBAMOL 750 MG TABLET PO PRN (15:51)
[2023-11-07] MEDS ORDERED: CYCLOBENZAPRINE HCL 10 MG TAB PO PRN (15:51)
[2023-11-07] MEDS ORDERED: valACYclovir HCL 500 MG TABLET PO PRN (15:51)
[2023-11-07] MEDS: ACETAMINOPHEN 325 MG TAB PO SCH ×2 (16:20→20:33)
[2023-11-07] MEDS: IBUPROFEN 600 MG TAB PO SCH (16:21)
[2023-11-07] MEDS: DIVALPROEX DELAY RELEASE 250 MG TABEC PO SCH (20:33)
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
[2023-11-08] MEDS: SERTRALINE HCL 50 MG TABLET PO SCH (09:04)
[2023-11-08] MEDS: hydrOXYzine HCl 25 MG TAB PO PRN ×2 (12:36→22:48)
[2023-11-08] MEDS: CYCLOBENZAPRINE HCL 10 MG TAB PO PRN (21:32)
--- NOTE | 2023-11-09 09:38 | Psychiatric Progress Note ---
Date of Service November 09, 2023 Impression / Recommendations Impression ANGELICA DURAN is a 33-year-old F who currently lives in [place] with her son, intermittently and grandparents, has a history of BPAD, PTSD, anxiety, polysubstance use and was admitted on 11/06/23 20:48 on a 201 voluntary commitment for SI and erratic behavior. Diagnostically most consistent with unspecified mood disorder with differential including exacerbation of BPAD with hypomania/mixed symptoms after recent IV steroid for back pain and no current mood stabilizer vs disinhibition in context of alcohol intoxication and worsened depression in setting of alcohol withdrawal vs borderline personality disorder with periods of intense anger. Does have history of well defined manic episodes but suspect likely also co-occurring BPD and PTSD. Alcohol use certainly contributed to negative consequences but seems to be isolated incident, denies recent increase or misuse or problematic alcohol consumption, no current concerns for risk of acute withdrawal. A: Mood improving a little bit, less irritable, still dealing with physical pain from events prior to admission but responding to symptomatic prns. Ongoing periods of high anxiety. Liking Depakote so far, she wishes to continue with titration. MNPR given significant irritability/anger, recent physical aggression Overall, I spent a total of 30 minutes on this case including meeting with the patient, reviewing the chart, nursing report, multidisciplinary team meeting, orders, and documentation. (1) Bipolar affective disorder, current episode mixed: (2) Cluster B personality disorder: (3) Depression with suicidal ideation: (4) SHIRLEY (generalized anxiety disorder): (5) Post traumatic stress disorder (PTSD): (6) Difficulty controlling anger: Plan 11/09/2023: Increase Depakote to 250mg qAM and 500mg HS. 11/08/2023: Continue current meds and tx plan. 11/07/2023: The patient was admitted to the [facility] on q15 min checks (behavioral with suicide precautions) for safety. The patient will participate in group, recreational, and milieu therapies and will be offered additional individual and family sessions as clinically appropriate. -start sertraline 50mg qd -start Depakote DR 250mg BID -propranolol 10mg BID prn for panic attacks Inventory Assets Strengths: supportive relationships, willing to get treatment Needs: safety and stabilization, medication adjustment, additional coping skills, increased outpatient services Suicide Risk Level Suicide Risk Level: Moderate (q15 min suicide checks) (mood lability, SI with plan prior to admin, mood improving, feels safe in the hospital, able to ask for support) Suicide Risk Level Comments: Risk Factors Assessment Do You Have Access To A Gun?: No Mental Health Diagnoses: Yes Previous Attempt: Yes Previous Psychiatric Hospitalization: Yes Protective Factors Assessment : Yes 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 Chief Complaint "I'm alright". Review of Systems Sleep Information Total Hours of Sleep: 6 Meal Information Percent Meal Consumed - Breakfast: 75 Percent Meal Consumed - Lunch: 75 Percent Meal Consumed - Dinner: 100 Subjective Subjective Patient was seen & assessed and interval progress reviewed with treatment team nursing and social work. Focused on anxiety and pain last evening, received multiple prns. Frustrated when she couldn't get in contact with her . Had a visit with CM. Processing grief about godchild in NICU and past miscarriage. Today reports ongoing pain from fall/episode of intoxication prior to admission most prominently rib pain when she moves in certain positions. Otherwise feels her mood is "alright". She would like to continue with Depakote titration, denies any side effects and feels it is helping to stabilize her mood and lessen her anxiety and anger. Physical Exam Psychiatric Orientation: alert and oriented x 3 Apperance: appropriately dressed and appropriately groomed Eye Contact: good eye contact Motor Behavior: no abnormal motor movements Speech: normal rate/rhythm/volume of speech Affect: + depressed affect, + labile affect and + irritable affect Mood: + depressed mood and + anxious mood Thought Process: goal directed thought process Thought Content: reality based without delusions Suicidal Thoughts: denies suicidal plan (none for hospital) and denies suicidal intent; + reports suicidal thoughts (intermittent but lessening) Homicidal Thoughts: denies homicidal thoughts Hallucinations: no auditory hallucinations and no visual hallucinations Cognition: recent memory grossly intact, remote memory grossly intact, attention grossly intact and language grossly intact Estimated Intelligence: consistent with education level Insight: + limited insight Judgment: + limited judgement Vital Signs (Past 24 Hours) Last Vital Signs Temp 35.6 C L 11/09/23 06:00 Pulse 73 11/09/23 06:34 Resp 16 11/09/23 06:00 BP 113/76 11/09/23 06:34 Pulse Ox 96 11/06/23 20:59 O2 Del Method Room Air 11/06/23 20:59 Results & Data ([facility]) Laboratory Results Laboratory Results - last 24 hr 11/06/23 18:03 POC Urine pH Cancelled POC Urine Protein Cancelled POC Ur Glucose (UA) Cancelled POC Urine Ketones Cancelled POC Urine Blood Cancelled POC Urine Nitrite Cancelled POC Urine Bilirubin Cancelled POC Urine Urobilinogen Cancelled POC U Leukocyte Esteras Cancelled Current Inpatient Medications Current Inpatient Medications: Current Inpatient Medications Acetaminophen (Acetaminophen 325 Mg Tab) 650 mg PO Q4HWA GLADIS Stop: 12/07/23 19:59 Last Admin: 11/09/23 09:02 Dose: 650 mg Al Hydrox/Mg Hydrox/Simethicone (Aluminum/Magnesium Susp 30 Ml Udc) 30 ml PO Q4H PRN PRN Reason: GI Upset Stop: 12/06/23 20:48 Bismuth Subsalicylate (Bismuth Subsalicylate Liqd 236 Ml) 15 ml PO PRN PRN PRN Reason: Loose Stool Stop: 12/06/23 20:48 Cyclobenzaprine HCl (Cyclobenzaprine Hcl 10 Mg Tab) 10 mg PO TID PRN PRN Reason: Muscle Spasm Stop: 12/09/23 08:59 Last Admin: 11/08/23 21:32 Dose: 10 mg Divalproex Sodium (Divalproex Delay Release 250 Mg Tabec) 250 mg PO BID GLADIS Stop: 12/07/23 20:59 Last Admin: 11/09/23 09:03 Dose: 250 mg Hydroxyzine HCl (Hydroxyzine Hcl 25 Mg Tab) 25 mg PO Q4H PRN PRN Reason: Anxiety Stop: 12/06/23 20:48 Last Admin: 11/08/23 21:03 Dose: 25 mg Hydroxyzine HCl (Hydroxyzine Hcl 25 Mg Tab) 50 mg PO HS PRN PRN Reason: Sleep Stop: 12/08/23 21:17 Last Admin: 11/08/23 22:48 Dose: 50 mg Ibuprofen (Ibuprofen 600 Mg Tab) 600 mg PO Q8 GLADIS Stop: 12/07/23 15:59 Last Admin: 11/09/23 05:51 Dose: 600 mg Magnesium Hydroxide (Magnesium Hydroxide Susp 30 Ml Udc) 30 ml PO DAILY PRN PRN Reason: Constipation Stop: 12/06/23 20:48 Miscellaneous (Remove Nicoderm Patch) 1 each N/A DAILY@0859 GLADIS Stop: 12/07/23 08:58 Last Admin: 11/09/23 09:08 Dose: 1 each Nicotine (Nicotine 14 Mg/24 Hr Patch) 1 patch TD QAM [facility] Stop: 12/07/23 08:59 Last Admin: 11/09/23 09:08 Dose: 1 patch Sertraline HCl (Sertraline Hcl 50 Mg Tablet) 50 mg PO DAILY GLADIS Stop: 12/08/23 08:59 Last Admin: 11/09/23 09:03 Dose: 50 mg Sodium Chloride (Sodium Chloride 0.65% Na Soln 45 Ml ([place])) 1 - 2 sprays NA PRN PRN PRN Reason: Nasal Dryness/Congestion Stop: 12/06/23 20:48 Valacyclovir HCl (Valacyclovir Hcl 500 Mg Tablet) 500 mg PO BID PRN PRN Reason: outbreak Stop: 12/07/23 15:50 Mental Health & Subst Abuse Tx Therapist Name of Therapist: N/A Intake Assessor Name of Intake Assessor: Karlos Dennis Post Discharge Appointments Primary Care Physician Name Of Family Doctor/PCP: Dr. Cisneros
[2023-11-09 15:02] LABS: Marijuana Quant, GCMS Urine 255 ng/mL (<5)
[2023-11-09] MEDS: DIVALPROEX DELAY RELEASE 500 MG TAB PO SCH (21:03)
[2023-11-10] MEDS: DIVALPROEX DELAY RELEASE 250 MG TABEC PO SCH (08:41)
--- NOTE | 2023-11-10 09:53 | Psychiatric Progress Note ---
Date of Service November 10, 2023 Impression / Recommendations Impression ANGELICA DURAN is a 33-year-old F who currently lives in [place] with her son, intermittently and grandparents, has a history of BPAD, PTSD, anxiety, polysubstance use and was admitted on 11/06/23 20:48 on a 201 voluntary commitment for SI and erratic behavior. Diagnostically most consistent with unspecified mood disorder with differential including exacerbation of BPAD with hypomania/mixed symptoms after recent IV steroid for back pain and no current mood stabilizer vs disinhibition in context of alcohol intoxication and worsened depression in setting of alcohol withdrawal vs borderline personality disorder with periods of intense anger. Does have history of well defined manic episodes but suspect likely also co-occurring BPD and PTSD. Alcohol use certainly contributed to negative consequences but seems to be isolated incident, denies recent increase or misuse or problematic alcohol consumption, no current concerns for risk of acute withdrawal. A: Mood remains somewhat labile wiht periods of irritability but lessening overall in intensity and frequency of shifts. She feels the Depakote is helping with depression and mood lability. Tolerating increase and she wants to continue with titration. MNPR given significant irritability/anger, recent physical aggression Overall, I spent a total of 25 minutes on this case including meeting with the patient, reviewing the chart, nursing report, multidisciplinary team meeting, orders, and documentation. (1) Bipolar affective disorder, current episode mixed: (2) Cluster B personality disorder: (3) Depression with suicidal ideation: (4) SHIRLEY (generalized anxiety disorder): (5) Post traumatic stress disorder (PTSD): (6) Difficulty controlling anger: Plan 11/10/2023: Increase Depakote DR to 500mg BID. Level in 2 days. 11/09/2023: Increase Depakote to 250mg qAM and 500mg HS. 11/08/2023: Continue current meds and tx plan. 11/07/2023: The patient was admitted to the [facility] ([facility] inpatient mental health unit) on q15 min checks (behavioral with suicide precautions) for safety. The patient will participate in group, recreational, and milieu therapies and will be offered additional individual and family sessions as clinically appropriate. -start sertraline 50mg qd -start Depakote DR 250mg BID -propranolol 10mg BID prn for panic attacks Inventory Assets Strengths: supportive relationships, willing to get treatment Needs: safety and stabilization, medication adjustment, additional coping skills, increased outpatient services Suicide Risk Level Suicide Risk Level: Moderate (q15 min suicide checks) (mood lability, SI with plan prior to admin, mood improving, feels safe in the hospital, able to ask for support) Suicide Risk Level Comments: Risk Factors Assessment Do You Have Access To A Gun?: No Mental Health Diagnoses: Yes Previous Attempt: Yes Previous Psychiatric Hospitalization: Yes Protective Factors Assessment : Yes 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 Chief Complaint "Fine". Review of Systems Sleep Information Total Hours of Sleep: 7.25 Meal Information Percent Meal Consumed - Breakfast: 100 Percent Meal Consumed - Lunch: 100 Percent Meal Consumed - Dinner: 100 Subjective Subjective Patient was seen & assessed and interval progress reviewed with treatment team nursing and social work. Less irritable last evening. Slept well last night. This morning requested Vistaril this morning due to a loud noise causing her to feel more PTSD symptoms, a little bit more agitation/irritability. Today reports mood as "fine". Rib pain lessening. No side effects from increased Depakote last night, she'd like to increase morning dose too. Observed to be more upset after phone call with her . Physical Exam Psychiatric Orientation: alert and oriented x 3 Apperance: appropriately dressed and appropriately groomed Eye Contact: good eye contact Motor Behavior: no abnormal motor movements Speech: normal rate/rhythm/volume of speech Affect: + depressed affect, + labile affect and + irritable affect Mood: + depressed mood and + anxious mood Thought Process: goal directed thought process Thought Content: reality based without delusions Suicidal Thoughts: denies suicidal plan (none for hospital) and denies suicidal intent; + reports suicidal thoughts (intermittent but lessening) Homicidal Thoughts: denies homicidal thoughts Hallucinations: no auditory hallucinations and no visual hallucinations Cognition: recent memory grossly intact, remote memory grossly intact, attention grossly intact and language grossly intact Estimated Intelligence: consistent with education level Insight: + limited insight Judgment: + limited judgement Vital Signs (Past 24 Hours) Last Vital Signs Temp 37 C 11/10/23 06:43 Pulse 91 H 11/10/23 06:43 Resp 16 11/10/23 06:43 BP 109/66 11/10/23 06:43 Pulse Ox 96 11/06/23 20:59 O2 Del Method Room Air 11/06/23 20:59 Results & Data ([facility]) Laboratory Results Laboratory Results - last 24 hr 11/06/23 18:03 U Marijuana THC Carboxy 255 H Drug Screen Comment SEE NOTE Current Inpatient Medications Current Inpatient Medications: Current Inpatient Medications Acetaminophen (Acetaminophen 325 Mg Tab) 650 mg PO Q4HWA GLADIS Stop: 12/07/23 19:59 Last Admin: 11/10/23 08:41 Dose: 650 mg Al Hydrox/Mg Hydrox/Simethicone (Aluminum/Magnesium Susp 30 Ml Udc) 30 ml PO Q4H PRN PRN Reason: GI Upset Stop: 12/06/23 20:48 Bismuth Subsalicylate (Bismuth Subsalicylate Liqd 236 Ml) 15 ml PO PRN PRN PRN Reason: Loose Stool Stop: 12/06/23 20:48 Cyclobenzaprine HCl (Cyclobenzaprine Hcl 10 Mg Tab) 10 mg PO TID PRN PRN Reason: Muscle Spasm Stop: 12/09/23 08:59 Last Admin: 11/08/23 21:32 Dose: 10 mg Divalproex Sodium (Divalproex Delay Release 250 Mg Tabec) 250 mg PO DAILY GLADIS Stop: 12/10/23 08:59 Last Admin: 11/10/23 08:41 Dose: 250 mg Divalproex Sodium (Divalproex Delay Release 500 Mg Tab) 500 mg PO HS GLADIS Stop: 12/09/23 21:59 Last Admin: 11/09/23 21:03 Dose: 500 mg Hydroxyzine HCl (Hydroxyzine Hcl 25 Mg Tab) 25 mg PO Q4H PRN PRN Reason: Anxiety Stop: 12/06/23 20:48 Last Admin: 11/10/23 08:56 Dose: 25 mg Hydroxyzine HCl (Hydroxyzine Hcl 25 Mg Tab) 50 mg PO HS PRN PRN Reason: Sleep Stop: 12/08/23 21:17 Last Admin: 11/08/23 22:48 Dose: 50 mg Ibuprofen (Ibuprofen 600 Mg Tab) 600 mg PO Q8 GLADIS Stop: 12/07/23 15:59 Last Admin: 11/10/23 05:59 Dose: 600 mg Magnesium Hydroxide (Magnesium Hydroxide Susp 30 Ml Udc) 30 ml PO DAILY PRN PRN Reason: Constipation Stop: 12/06/23 20:48 Miscellaneous (Remove Nicoderm Patch) 1 each N/A DAILY@0859 GLADIS Stop: 12/07/23 08:58 Last Admin: 11/10/23 08:41 Dose: 1 each Nicotine (Nicotine 14 Mg/24 Hr Patch) 1 patch TD QAM [facility] Stop: 12/07/23 08:59 Last Admin: 11/10/23 08:41 Dose: 1 patch Sertraline HCl (Sertraline Hcl 50 Mg Tablet) 50 mg PO DAILY GLADIS Stop: 12/08/23 08:59 Last Admin: 11/10/23 08:41 Dose: 50 mg Sodium Chloride (Sodium Chloride 0.65% Na Soln 45 Ml ([place])) 1 - 2 sprays NA PRN PRN PRN Reason: Nasal Dryness/Congestion Stop: 12/06/23 20:48 Valacyclovir HCl (Valacyclovir Hcl 500 Mg Tablet) 500 mg PO BID PRN PRN Reason: outbreak Stop: 12/07/23 15:50 Mental Health & Subst Abuse Tx Therapist Name of Therapist: N/A Indoor Sports Centre Manager Name of Indoor Sports Centre Manager: Karlos Dennis Post Discharge Appointments Primary Care Physician Name Of Family Doctor/PCP: Dr. Cisneros
[2023-11-10] MEDS: DIVALPROEX DELAY RELEASE 250 MG TABEC PO ONE (10:43)
[2023-11-10] MEDS: DIVALPROEX DELAY RELEASE 500 MG TAB PO SCH (21:07)
--- NOTE | 2023-11-11 09:40 | Psychiatric Progress Note ---
Date of Service November 11, 2023 Impression / Recommendations Impression ANGELICA DURAN is a 33-year-old F who currently lives in [place] with her son, intermittently and grandparents, has a history of BPAD, PTSD, anxiety, polysubstance use and was admitted on 11/06/23 20:48 on a 201 voluntary commitment for SI and erratic behavior. Diagnostically most consistent with unspecified mood disorder with differential including exacerbation of BPAD with hypomania/mixed symptoms after recent IV steroid for back pain and no current mood stabilizer vs disinhibition in context of alcohol intoxication and worsened depression in setting of alcohol withdrawal vs borderline personality disorder with periods of intense anger. Does have history of well defined manic episodes but suspect likely also co-occurring BPD and PTSD. Alcohol use certainly contributed to negative consequences but seems to be isolated incident, denies recent increase or misuse or problematic alcohol consumption, no current concerns for risk of acute withdrawal. A: Reports some increased irritability yesterday but noticing some benefits from Depakote in lessening this. Tolerating medications well. Reviewed rationale for not making further sertraline adjustments to allow for effects to be seen in 4-6 weeks before increasing in the future if needed. Rather discussed that further Depakote adjustments could be warranted after level comes back. Depakote level to be done tomorrow. MNPR given significant irritability/anger, recent physical aggression Overall, I spent a total of 30 minutes on this case including meeting with the patient, reviewing the chart, nursing report, multidisciplinary team meeting, orders, and documentation. (1) Bipolar affective disorder, current episode mixed: (2) Cluster B personality disorder: (3) Depression with suicidal ideation: (4) SHIRLEY (generalized anxiety disorder): (5) Post traumatic stress disorder (PTSD): (6) Difficulty controlling anger: Plan 11/11/2023: Continue current medications and tx plan. 11/10/2023: Increase Depakote DR to 500mg BID. Level in 2 days. 11/09/2023: Increase Depakote to 250mg qAM and 500mg HS. 11/08/2023: Continue current meds and tx plan. 11/07/2023: The patient was admitted to the [facility] ([facility]) on q15 min checks (behavioral with suicide precautions) for safety. The patient will participate in group, recreational, and milieu therapies and will be offered additional individual and family sessions as clinically appropriate. -start sertraline 50mg qd -start Depakote DR 250mg BID -propranolol 10mg BID prn for panic attacks Inventory Assets Strengths: supportive relationships, willing to get treatment Needs: safety and stabilization, medication adjustment, additional coping skills, increased outpatient services Suicide Risk Level Suicide Risk Level: Moderate (q15 min suicide checks) (mood lability, SI with plan prior to admin, mood improving, feels safe in the hospital, able to ask for support) Suicide Risk Level Comments: Risk Factors Assessment Do You Have Access To A Gun?: No Mental Health Diagnoses: Yes Previous Attempt: Yes Previous Psychiatric Hospitalization: Yes Protective Factors Assessment : Yes 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 Chief Complaint "Can we up my Zoloft?". Review of Systems Sleep Information Total Hours of Sleep: 7.5 Meal Information Percent Meal Consumed - Breakfast: 100 Percent Meal Consumed - Lunch: 85 Percent Meal Consumed - Dinner: 80 Subjective Subjective Patient was seen & assessed and interval progress reviewed with treatment team nursing and social work. Attended all the evening groups and reported mood as "hopeful" but also "overwhelmed". Slept well. Utilizing Vistaril prn, tearful after upsetting phone call in the evening with her . Today reports her mood is ok. Wonders about increasing sertraline due to having a few moments yesterday "that were rough" when "I kind of went off". No side effects from Depakote and she feels her anger isn't as explosive. Feels she needs to continue to focus on "being more receptive to group and finding healthy ways of doing things". Physical Exam Psychiatric Orientation: alert and oriented x 3 Apperance: appropriately dressed and appropriately groomed Eye Contact: good eye contact Motor Behavior: no abnormal motor movements Speech: normal rate/rhythm/volume of speech Affect: + depressed affect Mood: + depressed mood and + anxious mood Thought Process: goal directed thought process Thought Content: reality based without delusions Suicidal Thoughts: denies suicidal thoughts (lessening), denies suicidal plan (none for hospital) and denies suicidal intent Homicidal Thoughts: denies homicidal thoughts Hallucinations: no auditory hallucinations and no visual hallucinations Cognition: recent memory grossly intact, remote memory grossly intact, attention grossly intact and language grossly intact Estimated Intelligence: consistent with education level Insight: + limited insight Judgment: + limited judgement Vital Signs (Past 24 Hours) Last Vital Signs Temp 36.8 C 11/11/23 06:52 Pulse 88 11/11/23 06:52 Resp 16 11/11/23 06:52 BP 108/74 11/11/23 06:52 Pulse Ox 96 11/06/23 20:59 O2 Del Method Room Air 11/06/23 20:59 Results & Data ([facility]) Current Inpatient Medications Current Inpatient Medications: Current Inpatient Medications Acetaminophen (Acetaminophen 325 Mg Tab) 650 mg PO Q4HWA GLADIS Stop: 12/07/23 19:59 Last Admin: 11/11/23 08:28 Dose: 650 mg Al Hydrox/Mg Hydrox/Simethicone (Aluminum/Magnesium Susp 30 Ml Udc) 30 ml PO Q4H PRN PRN Reason: GI Upset Stop: 12/06/23 20:48 Bismuth Subsalicylate (Bismuth Subsalicylate Liqd 236 Ml) 15 ml PO PRN PRN PRN Reason: Loose Stool Stop: 12/06/23 20:48 Cyclobenzaprine HCl (Cyclobenzaprine Hcl 10 Mg Tab) 10 mg PO TID PRN PRN Reason: Muscle Spasm Stop: 12/09/23 08:59 Last Admin: 11/08/23 21:32 Dose: 10 mg Divalproex Sodium (Divalproex Delay Release 500 Mg Tab) 500 mg PO BID GLADIS Stop: 12/10/23 20:59 Last Admin: 11/11/23 08:28 Dose: 500 mg Hydroxyzine HCl (Hydroxyzine Hcl 25 Mg Tab) 25 mg PO Q4H PRN PRN Reason: Anxiety Stop: 12/06/23 20:48 Last Admin: 11/10/23 08:56 Dose: 25 mg Hydroxyzine HCl (Hydroxyzine Hcl 25 Mg Tab) 50 mg PO HS PRN PRN Reason: Sleep Stop: 12/08/23 21:17 Last Admin: 11/10/23 21:09 Dose: 50 mg Ibuprofen (Ibuprofen 600 Mg Tab) 600 mg PO Q8 GLADIS Stop: 12/07/23 15:59 Last Admin: 11/11/23 05:55 Dose: 600 mg Magnesium Hydroxide (Magnesium Hydroxide Susp 30 Ml Udc) 30 ml PO DAILY PRN PRN Reason: Constipation Stop: 12/06/23 20:48 Miscellaneous (Remove Nicoderm Patch) 1 each N/A DAILY@0859 GLADIS Stop: 12/07/23 08:58 Last Admin: 11/11/23 08:28 Dose: 1 each Nicotine (Nicotine 14 Mg/24 Hr Patch) 1 patch TD QAM GLADIS Stop: 12/07/23 08:59 Last Admin: 11/11/23 08:28 Dose: 1 patch Sertraline HCl (Sertraline Hcl 50 Mg Tablet) 50 mg PO DAILY GLADIS Stop: 12/08/23 08:59 Last Admin: 11/11/23 08:28 Dose: 50 mg Sodium Chloride (Sodium Chloride 0.65% Na Soln 45 Ml ([place])) 1 - 2 sprays NA PRN PRN PRN Reason: Nasal Dryness/Congestion Stop: 12/06/23 20:48 Valacyclovir HCl (Valacyclovir Hcl 500 Mg Tablet) 500 mg PO BID PRN PRN Reason: outbreak Stop: 12/07/23 15:50 Mental Health & Subst Abuse Tx Therapist Name of Therapist: N/A Rotary Operator Name of Rotary Operator: Karlos Dennis Post Discharge Appointments Primary Care Physician Name Of Family Doctor/PCP: Dr. Cisneros
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
[2023-11-12] MEDS: traZODone HCL 50 MG TAB PO SCH (21:23)
[2023-11-13 06:40] VITALS: TEMP 97.5
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
[2023-11-13 11:20] VITALS: BP 124/86; PULSE 82
[2023-11-13] MEDS: DIVALPROEX DELAY RELEASE 500 MG TAB PO ONE (12:28)
== END 2023-11-13 13:00 | disposition home or self-care (01) | DRG 885 ==
LOC: ED 17:12 → 3S 20:39